=== PATIENT | female | born 1985 | race Caucasian/White ===

== ENCOUNTER 2020-04-16 15:42 | Inpatient (IN) ==
[2020-04-17] MEDS ORDERED: BUTORPHANOL 2 MG/ML VIAL IM PRN (03:21)
[2020-04-17] MEDS ORDERED: ONDANSETRON 4 MG/2 ML VIAL IV PRN ×2 (08:33→22:35)
[2020-04-17] MEDS ORDERED: LACTATED RINGERS 1,000 ML IV PRN (08:33)
[2020-04-17] MEDS ORDERED: AMPICILLIN INJ 2,000 MG in SODIUM CHLORIDE 0.9% 100 ML IV ONE (08:38)
[2020-04-17 08:53] LABS: Basophils % 0.1 % (0.0-0.8); Eosinophils # 0.1 10*3/uL (0.0-0.87); Eosinophils % 0.6 % (0.00-10.9); Hematocrit 36.5 VOL% (35.7-47.0); Hemoglobin 11.8 GM/DL (12.0-16.0); Immature Granulocytes % 0.6 %; Immature Granulocytes Absolute 0.08 #; Lymphocytes # 1.9 10*3/uL (1.4-4.0); Lymphocytes % 13.3 % (21.3-54.2); Mean Corpuscular HGB Conc 32.3 GM/DL (32-36); Mean Corpuscular Volume 86.5 FL (87-102); Mean Platelet Volume 10.5 FL (9.6-12.0); Neutrophils % 78.4 % (38.7-73.9); Platelet Count 221 T/CUMM (130-400); Red Blood Count 4.22 MC/CUMM (3.8-5.5); Red Cell Distribution Width 15.1 % (9.3-17.3); White Blood Count 14.1 T/CUMM (4-12)
[2020-04-17] MEDS ORDERED: OXYTOCIN 20 UNIT in SODIUM CHLORIDE 0.9% 1,000 ML IV SCH (09:00)
[2020-04-17] MEDS ORDERED: LACTATED RINGERS 1,000 ML IV SCH (09:00)
[2020-04-17] MEDS ORDERED: diphenhydrAMINE 50 MG/1 ML VIAL IV PRN ×2 (09:39)
[2020-04-17] MEDS ORDERED: NALOXONE 0.4 MG/ML VIAL IV PRN (09:39)
[2020-04-17] MEDS ORDERED: ONDANSETRON 4 MG/2 ML VIAL IV ONE (09:39)
[2020-04-17] MEDS ORDERED: CITRIC ACID/SODIUM CITRATE 30 ML UDCUP PO ONE (09:39)
[2020-04-17] MEDS ORDERED: FAMOTIDINE 20 MG/2 ML VIAL IV ONE (09:39)
[2020-04-17] MEDS ORDERED: PROMETHAZINE 25 MG/1 ML VIAL IM ONE (09:39)
[2020-04-17] MEDS ORDERED: hydrOXYzine HCL 25 MG/1 ML VIAL IM PRN (09:39)
[2020-04-17] MEDS ORDERED: fentaNYL 2 MCG/ROPIV 0.2% EPID 100 ML EPIDURAL SCH (10:00)
[2020-04-17] MEDS ORDERED: OXYTOCIN/LR 20 UNIT/1,000 ML BAG IV ONE ×3 (11:13→22:35)
[2020-04-17] MEDS ORDERED: OXYTOCIN/LR 20 UNIT/1,000 ML BAG IV SCH (11:30)
[2020-04-17 13:28] LABS: Apearance,Urine CLEAR (Clear); Bacteria,Urine Occasional /HPF (Few); Bilirubin,Urine Negative (Negative); Blood, Urine Small mg/dL (Negative); Glucose,Urine (UA) 50 mg/dL (Negative); Ketones,Urine 20 mg/dL (Negative); Mucus,Urine Occasional /LPF (Occasional); Nitrite,Urine Negative (Negative); Protein,Urine 30 MG/DL; RBC,Urine 52 /HPF (0-4); Squamous Epithelial Cell,Urine Occasional /HPF (0-10); Urine Color Yellow (Yellow); Urine Specific Gravity 1.027 (1.001-1.035); Urine Urobilinogen < 2.0 EU/DL (0.2-1.0); WBC,Urine 10 /HPF (0-6)
[2020-04-17] MEDS: AMPICILLIN INJ 1,000 MG in SODIUM CHLORIDE 0.9% 100 ML IV SCH ×3 (13:35→21:03)
[2020-04-17] MEDS: ePHEDrine 50 MG/ML VIAL IV PRN ×2 (13:58→14:00)
[2020-04-17] MEDS ORDERED: miSOPROStoL 200 MCG TABLET ONE (21:22)
[2020-04-17] MEDS ORDERED: METHYLERGONOVINE 0.2 MG/1 ML AMP ONE (21:22)
[2020-04-17] MEDS ORDERED: TRANEXAMIC ACID 1,000 MG/10 ML VIAL ONE (21:22)
[2020-04-17] MEDS ORDERED: SODIUM CHLORIDE 0.9% 0 ML IV ONE (21:23)
[2020-04-17] MEDS ORDERED: CARBOPROST TROMETHAMINE 250 MCG/ML AMP IM ONE (21:23)
[2020-04-17] MEDS ORDERED: ceFAZolin 3,000 MG in SYRINGE 1 EACH IV ONE (21:30)
[2020-04-17] MEDS ORDERED: ACETAMINOPHEN 325 MG TABLET PO PRN (22:35)
[2020-04-17] MEDS ORDERED: RHO(D) IMMUNE GLOBULIN 300 MCG SYRINGE IM ONE (22:35)
[2020-04-17] MEDS ORDERED: ceFAZolin 1,000 MG in SYRINGE 1 EACH IV SCH (23:00)
[2020-04-18] MEDS ORDERED: ONDANSETRON 4 MG/2 ML VIAL ONE (00:23)
[2020-04-18] MEDS ORDERED: KETOROLAC 30 MG/1 ML VIAL ONE (00:23)
[2020-04-18] MEDS ORDERED: MORPHINE 10 MG/10 ML VIAL ONE (00:23)
[2020-04-18] MEDS ORDERED: LACTATED RINGERS 1,000 ML IV ONE (00:24)
[2020-04-18] MEDS ORDERED: LIDOCAINE MPF 2% /EPI 20 ML VIAL ONE (00:24)
[2020-04-18] MEDS ORDERED: diphenhydrAMINE CAP 25 MG CAPSULE PO PRN (01:59)
[2020-04-18] MEDS: IBUPROFEN 800 MG TABLET PO PRN ×2 (02:13→23:45)
[2020-04-18] MEDS: LACTATED RINGERS 1,000 ML IV SCH ×2 (04:57→06:59)
[2020-04-18] MEDS: ceFAZolin 1,000 MG in SYRINGE 1 EACH IV SCH ×2 (05:32→15:30)
[2020-04-18 06:44] LABS: Basophils % 0.3 % (0.0-0.8); Eosinophils # 0.1 10*3/uL (0.0-0.87); Eosinophils % 0.4 % (0.00-10.9); Hematocrit 33.1 VOL% (35.7-47.0); Hemoglobin 10.7 GM/DL (12.0-16.0); Immature Granulocytes % 0.7 %; Immature Granulocytes Absolute 0.11 #; Lymphocytes % 12.5 % (21.3-54.2); Mean Corpuscular HGB Conc 32.3 GM/DL (32-36); Mean Corpuscular Volume 88.5 FL (87-102); Mean Platelet Volume 10.8 FL (9.6-12.0); Neutrophils % 77.1 % (38.7-73.9); Platelet Count 196 T/CUMM (130-400); Red Blood Count 3.74 MC/CUMM (3.8-5.5); Red Cell Distribution Width 15.2 % (9.3-17.3); White Blood Count 15.8 T/CUMM (4-12)
[2020-04-18] MEDS: MAGNESIUM HYDROXIDE SUSP 30 ML UDCUP PO PRN ×2 (09:45→20:32)
[2020-04-18] MEDS: DOCUSATE SODIUM 100 MG CAPSULE PO SCH ×2 (09:45→20:32)
[2020-04-18] MEDS: MULTIVITAMIN (PRENATAL) TABLET PO SCH (09:45)
[2020-04-18] MEDS: SIMETHICONE CHEW 80 MG TABLET PO PRN (09:54)
[2020-04-18 14:01] LABS: Basophils % 0.1 % (0.0-0.8); Eosinophils # 0.1 10*3/uL (0.0-0.87); Eosinophils % 0.4 % (0.00-10.9); Hematocrit 34.6 VOL% (35.7-47.0); Hemoglobin 11.1 GM/DL (12.0-16.0); Immature Granulocytes % 0.6 %; Immature Granulocytes Absolute 0.09 #; Lymphocytes # 1.8 10*3/uL (1.4-4.0); Lymphocytes % 12.6 % (21.3-54.2); Mean Corpuscular HGB Conc 32.1 GM/DL (32-36); Mean Corpuscular Volume 89.2 FL (87-102); Mean Platelet Volume 10.5 FL (9.6-12.0); Monocytes % 9.4 % (1.7-12.7); Neutrophils % 76.9 % (38.7-73.9); Platelet Count 211 T/CUMM (130-400); Red Blood Count 3.88 MC/CUMM (3.8-5.5); Red Cell Distribution Width 15.2 % (9.3-17.3); White Blood Count 13.9 T/CUMM (4-12)
[2020-04-19] MEDS: MULTIVITAMIN (PRENATAL) TABLET PO SCH (08:55)
[2020-04-19] MEDS: DOCUSATE SODIUM 100 MG CAPSULE PO SCH (08:55)
[2020-04-19] MEDS: SIMETHICONE CHEW 80 MG TABLET PO PRN (08:55)
[2020-04-19] MEDS: IBUPROFEN 800 MG TABLET PO PRN (08:57)
[2020-04-19 11:35] VITALS: BP 111/63
== END 2020-04-19 14:00 | disposition home or self-care (01) | DRG 787 ==
LOC: N.LDOUT 15:42 → N.LD 15:53 → N.OB 04-18 02:01
PROVIDERS: ADMIT Obstetrics & Gynecology; ATTEND Obstetrics & Gynecology
PROC: LDCSECT (ICD-10-PCS; 2020-04-17 21:00)